=== PATIENT | female | born 2005 | race Caucasian/White ===

== ENCOUNTER → 2025-03-09 | Outpatient (CLI) | payer OTHER | LOC: M CARPUL 10:18 | DX: R06.02 Shortness of breath (principal) ==

== ENCOUNTER → 2025-05-17 | Outpatient (CLI) | payer OTHER ==
[~2025-05-17] MED LIST: METHACHOLINE KIT (6 VIAL.NEB PREMIX) INH ONE
== END ==
LOC: M CARPUL 14:44
DX: R06.02 Shortness of breath (principal)